=== PATIENT | female | born 1965 | race Caucasian/White ===

== ENCOUNTER → 2024-06-19 08:57 | Outpatient (REF) | payer BC, SELFPAY | LOC: RCS 08:57 | PROVIDERS: ATTENDING PHYSICIAN Internal Medicine Cardiovascular Disease; FAMILY PHYSICIAN Family Medicine | DX: R06.02 Shortness of breath (principal); R07.89 Other chest pain; L40.50 Arthropathic psoriasis, unspecified | CPT/HCPCS: 93017; 93320; 93325; 93350 ==

== ENCOUNTER → 2024-11-30 13:50 | Outpatient (REF) | payer BC, SELFPAY | LOC: WDC 13:50 | PROVIDERS: ATTENDING PHYSICIAN Nurse Practitioner Adult Health; FAMILY PHYSICIAN Family Medicine | DX: Z12.31 Encounter for screening mammogram for malignant neoplasm of breast (principal) | CPT/HCPCS: 77063; 77067 ==